=== PATIENT | male | born 1980 ===

== ENCOUNTER 2017-02-12 13:55 | Emergency (ER) | payer MEDICAID ==
[2017-02-12 13:55] VITALS: BMI 24.2
[2017-02-12] MEDS ORDERED: Sodium Chloride 0.9% 1,000 ML IV STA (14:08)
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
[2017-02-12 14:24] VITALS: RESP 18
--- NOTE | 2017-02-12 14:24 | RAD ---
HISTORY: Cough COMPARISON: No prior. FINDINGS: LUNGS: The lungs are well inflated and clear. PLEURA: No significant pleural effusion identified, no pneumothorax apparent. CARDIOVASCULAR: Normal. OSSEOUS STRUCTURES: No significant abnormalities. VISUALIZED UPPER ABDOMEN: Normal. OTHER FINDINGS: None. IMPRESSION: No active pulmonary disease.
[2017-02-12 14:42] LABS: BASO % 0.8 % (0.0-2.0); EOS # 0.1 K/uL (0.0-0.7); EOS % 2.3 % (0.0-4.0); HEMATOCRIT 39.4 % (35.0-51.0); LYMPH # 1.1 K/uL (1.0-4.3); LYMPH % 20.6 % (20.0-40.0); MEAN CELL VOLUME 90.9 fl (80.0-94.0); MEAN CORPUSCULAR HEMOGLOBIN 31.3 pg (27.0-31.0); MEAN CORPUSCULAR HGB CONC 34.4 g/dL (33.0-37.0); MEAN PLATELET VOLUME 10.9 fl (7.2-11.7); MONO % 18.4 % (0.0-10.0); NEUT % 57.9 % (50.0-75.0); NRBC % 0.1 % (0.0-0.0); RED CELL DISTRIBUTION WIDTH 13.2 % (11.5-14.5); WHITE BLOOD COUNT 5.2 K/uL (4.8-10.8)
[2017-02-12 14:51] LABS: ALB/GLOB RATIO 1.4 (1.0-2.1); ALCOHOL SERUM < 10 mg/dl (0-10); ALKALINE PHOSPHATASE 66 U/L (38-126); ALT/SGPT 56 U/L (21-72); AST/SGOT 31 U/L (17-59); BILIRUBIN,TOTAL 0.6 mg/dl (0.2-1.3); BLOOD UREA NITROGEN 15 mg/dl (9-20); CALCIUM 9.1 mg/dL (8.4-10.2); CARBON DIOXIDE 27 mmol/L (22-30); CHLORIDE 106 mmol/L (98-107); GFR AFRICAN-AMERICAN > 60; GLUCOSE,RANDOM 119 mg/dL (75-110); POTASSIUM 3.8 MMOL/L (3.6-5.0); SODIUM 143 mmol/l (132-148)
[2017-02-12 14:57] VITALS: O2SAT 97
--- NOTE | 2017-02-12 15:01 | CT ---
PROCEDURE: CT HEAD WITHOUT CONTRAST. HISTORY: r/o bleed COMPARISON: None available. TECHNIQUE: Axial computed tomography images were obtained through the head/brain without intravenous contrast. Radiation dose: Total exam DLP = 1172.70 mGy-cm. This CT exam was performed using one or more of the following dose reduction techniques: Automated exposure control, adjustment of the mA and/or kV according to patient size, and/or use of iterative reconstruction technique. FINDINGS: HEMORRHAGE: No intracranial hemorrhage. BRAIN: Blount-white matter differentiation is preserved. There is no mass, mass effect or abnormal extra-axial fluid collection. VENTRICLES: The ventricles are normal in size, shape and configuration. CALVARIUM: The skull base and calvarium are normal. PARANASAL SINUSES: Predominantly clear. MASTOID AIR CELLS: Predominantly clear. OTHER FINDINGS: None. IMPRESSION: No acute intracranial abnormality.
--- NOTE | 2017-02-12 15:24 | ED PDOC ---
- Laboratory Results Result Diagrams: 02/12/17 14:38 02/12/17 14:38 - ECG O2 Sat by Pulse Oximetry: 97 (RA) Pulse Ox Interpretation: Normal Medical Decision Making Medical Decision Making: Time: 15:00 --Patient endorsed from Dr. Luna to me. --Pending observation, reevaluation, and disposition. Time: 15:41 --Patient eloped from emergency department. --Attempt to call but unable to reach patient. --Left message to return to the ER. --License information provided was reported to the [facility] [place] medical fitness review unit Scribe Attestation: Documented by Lisa Aldana, acting as a scribe for Zhanna Solares MD. Provider Scribe Attestation: All medical record entries made by the Scribe were at my direction and personally dictated by me. I have reviewed the chart and agree that the record accurately reflects my personal performance of the history, physical exam, medical decision making, and the department course for this patient. I have also personally directed, reviewed, and agree with the discharge instructions and disposition. Disposition - Clinical Impression Clinical Impression: Seizure disorder - POA Present On Arrival: Falls Or Trauma - Disposition Disposition: Eloped Disposition Time: 15:41 Condition: IMPROVED
[2017-02-12 15:58] VITALS: BP 112/72; PULSE 71; TEMP 98.2
--- NOTE | 2017-02-14 11:06 | CARD ---
APPROVED REPORT EKG Measurement Heart [id number] 124P54 [id number] <Conclusion> Normal sinus rhythm Normal ECG
== END 2017-02-12 15:30 | disposition left against medical advice (07) ==
LOC: H.ER 13:55
DX: G40.909 Epilepsy, unspecified, not intractable, without status epilepticus (principal); F41.9 Anxiety disorder, unspecified
CPT/HCPCS: 70450; 71010; 80053; 80320; 82550; 82948; 85025; 93005; 99285; J7040

== ENCOUNTER 2017-02-12 19:51 | Observation (INO) | payer MEDICAID ==
[2017-02-12 19:51] VITALS: BMI 24.2
[2017-02-12 19:55] VITALS: BP 113/65; PULSE 85; RESP 18; TEMP 98.9; O2SAT 97
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
[2017-02-12] MEDS ORDERED: Sodium Chloride 0.9% 1,000 ML IV STA (20:17)
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
[2017-02-12 20:33] LABS: BASO # 0.1 K/uL (0.0-0.2); BASO % 1.1 % (0.0-2.0); EOS # 0.1 K/uL (0.0-0.7); EOS % 1.7 % (0.0-4.0); HEMATOCRIT 37.4 % (35.0-51.0); LYMPH # 1.2 K/uL (1.0-4.3); LYMPH % 18.3 % (20.0-40.0); MEAN CELL VOLUME 90.3 fl (80.0-94.0); MEAN CORPUSCULAR HEMOGLOBIN 30.7 pg (27.0-31.0); MEAN PLATELET VOLUME 10.8 fl (7.2-11.7); MONO # 1.2 K/uL (0.0-0.8); MONO % 18.1 % (0.0-10.0); NEUT % 60.8 % (50.0-75.0); NRBC % 0.1 % (0.0-0.0); WHITE BLOOD COUNT 6.6 K/uL (4.8-10.8)
[2017-02-12 20:33] LABS: VENOUS BLOOD GAS PCO2 47 mmHg (40-60); VENOUS BLOOD PH 7.38 (7.32-7.43)
[2017-02-12 20:42] LABS: ALB/GLOB RATIO 1.4 (1.0-2.1); ALCOHOL SERUM < 10 mg/dl (0-10); ALKALINE PHOSPHATASE 57 U/L (38-126); ALT/SGPT 50 U/L (21-72); AST/SGOT 28 U/L (17-59); BILIRUBIN,TOTAL 0.5 mg/dl (0.2-1.3); BLOOD UREA NITROGEN 18 mg/dl (9-20); CALCIUM 9.1 mg/dL (8.4-10.2); CARBON DIOXIDE 22 mmol/L (22-30); CHLORIDE 107 mmol/L (98-107); GFR AFRICAN-AMERICAN > 60; GLUCOSE,RANDOM 120 mg/dL (75-110); POTASSIUM 3.7 MMOL/L (3.6-5.0); SODIUM 140 mmol/l (132-148); TOTAL PROTEIN 6.4 G/DL (6.3-8.2)
[2017-02-12 22:29] LABS: RBC URINE 11 /hpf (0-3); URINE BILIRUBIN NEGATIVE (NEGATIVE); URINE BLOOD NEGATIVE (NEGATIVE); URINE CALCIUM OXALATE CRYSTALS RARE /hpf (<OCC); URINE COLOR YELLOW (YELLOW); URINE GLUCOSE (UA) NEG (Normal); URINE KETONE NEGATIVE (NEGATIVE); URINE LEUKOCYTE ESTERASE NEG Leu/uL (Negative); URINE PROTEIN NEGATIVE (NEGATIVE); WBC URINE 1 /hpf (0-5)
[2017-02-12] MEDS ORDERED: Dextrose 5%/0.9% NS 1,000 ML IV SCH (22:41)
[2017-02-12] MEDS ORDERED: levETIRAcetam 1,000 MG in Sodium Chloride 0.9% 100 ML IVPB ONE (22:42)
--- NOTE | 2017-02-14 11:04 | CARD ---
APPROVED REPORT EKG Measurement Heart [id number] 140P58 [id number] <Conclusion> Normal sinus rhythm Normal ECG
== END 2017-02-12 23:32 | disposition left against medical advice (07) ==
LOC: H.ER 19:51 → H.ERHOLD 22:39
PROVIDERS: ADMIT Internal Medicine; ATTEND Internal Medicine
DX: G40.909 Epilepsy, unspecified, not intractable, without status epilepticus (principal); J45.909 Unspecified asthma, uncomplicated; I10 Essential (primary) hypertension; F41.9 Anxiety disorder, unspecified
CPT/HCPCS: 80053; 80320; 80324; 80329; 80345; 80346; 80349; 80353; 80358; 80361; 81003; 82550; 82803; 82948; 83992; 85025; 99284; G0378; J7040

== ENCOUNTER 2017-04-11 04:02 | Emergency (ER) | payer MEDICAID ==
[2017-04-11 04:02] VITALS: BMI 24.2
[2017-04-11 04:10] VITALS: BP 135/83; PULSE 70; RESP 18; TEMP 98.3; O2SAT 98
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
== END 2017-04-11 04:55 ==
LOC: H.ER 04:02
DX: Z48.00 Encounter for change or removal of nonsurgical wound dressing (principal)

== ENCOUNTER 2018-02-20 22:10 | Emergency (ER) | payer MEDICAID ==
[2018-02-20 22:10] VITALS: BMI 24.2
[2018-02-20 22:34] VITALS: BP 122/71; PULSE 71; RESP 19; TEMP 98.9; O2SAT 98
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
--- NOTE | 2018-02-21 12:31 | RAD ---
Date of service: 02/20/2018 PROCEDURE: Right small finger radiographs. HISTORY: trauma COMPARISON: None available. TECHNIQUE: AP radiograph of the right hand, as well as spot oblique and lateral images of small finger were obtained. FINDINGS: RIGHT SMALL FINGER: Fifth digit demonstrates oblique nondisplaced fracture of the proximal aspect middle phalanx with intra-articular extension. Fracture deformity of the 4th proximal phalanx appears chronic however lucent line evident; correlate with physical exam in order to assess for point tenderness. JOINTS: No dislocation. SOFT TISSUES: Soft tissue swelling. No evidence of radiopaque foreign body. OTHER FINDINGS: None. IMPRESSION: Fifth digit demonstrates oblique nondisplaced fracture of the proximal aspect middle phalanx with intra-articular extension. Fracture deformity of the 4th proximal phalanx appears chronic however lucent line evident; correlate with physical exam in order to assess for point tenderness. Soft tissue swelling. Study marked for PA review.
== END 2018-02-20 23:40 | disposition home or self-care (01) ==
LOC: H.ER 22:10
DX: S62.646A Nondisplaced fracture of proximal phalanx of right little finger, initial encounter for closed fracture (principal); W22.8XXA Striking against or struck by other objects, initial encounter; Y92.89 Other specified places as the place of occurrence of the external cause

== ENCOUNTER 2018-03-15 12:50 | Emergency (ER) | payer MEDICAID ==
[2018-03-15 12:50] VITALS: BMI 24.2
[2018-03-15 12:55] VITALS: BP 159/79; PULSE 74; RESP 16; TEMP 97.7; O2SAT 97
--- NOTE | 2018-03-15 13:10 | ED PDOC ---
Upper Extremity Pain/Injury Time Seen by Provider: 03/15/18 12:56 Chief Complaint (Nursing): Upper Extremity Problem/Injury Chief Complaint (Provider): Right Elbow Pain History Per: Patient History/Exam Limitations: no limitations Onset/Duration Of Symptoms: Days (x1) Current Symptoms Are (Timing): Still Present Additional Complaint(s): 37 year old male presents to the ED for evaluation of right elbow pain s/p a slip and fall accident yesterday on a wet surface. Patient reports landing on his outstretched right arm behind him and with hyperextension of the elbow. S melody, he notes pain worse with movement to the elbow, but denies any numbness, tingling, or other injury. PMD: mitch Zambrano Past Medical History Reviewed: Historical Data, Nursing Documentation, Vital Signs Vital Signs: Last Vital Signs Temp 97.7 F 03/15/18 12:53 Pulse 74 03/15/18 12:53 Resp 16 03/15/18 12:53 BP 159/79 H 03/15/18 12:53 Pulse Ox 97 03/15/18 12:53 - Medical History PMH: Anxiety, Asthma, Fractures, HTN Denies: Diabetes, Hepatitis, HIV, Chronic Kidney Disease, Seizures, Sexually Transmitted Disease - Surgical History Surgical History: No Surg Hx - Family History Family History: States: Unknown Family Hx - Social History Current smoker - smoking cessation education provided: Yes (heavy) Alcohol: Social Drugs: Denies - Immunization History Hx Tetanus Toxoid Vaccination: No Hx Influenza Vaccination: No Hx Pneumococcal Vaccination: No - Home Medications Home Medications: Ambulatory Orders Medication Instructions Recorded Albuterol HFA [Ventolin HFA 90 1 puff IH .Q4-6H #1 inhaler 05/14/17 mcg/actuation (8 g)] RX: Ibuprofen [Motrin Tab] 600 mg PO Q8 #30 tab 05/14/17 RX: Naproxen [Naprosyn] 500 mg PO BID PRN #10 tab 02/20/18 Acetaminophen with Codeine 1 - 2 tab PO Q6 PRN #12 tablet 03/15/18 [Tylenol with Codeine #3 Tablet] - Allergies Allergies/Adverse Reactions: Allergies Allergy/AdvReac Type Severity Reaction Status Date / Time No Known Allergies Allergy Verified 03/15/18 12:53 Review of Systems ROS Statement: Except As Marked, All Systems Reviewed And Found Negative Musculoskeletal: Positive for: Other (right elbow pain) Neurological: Negative for: Numbness (or tingling) Physical Exam - Reviewed Nursing Documentation Reviewed: Yes Vital Signs Reviewed: Yes - Physical Exam Appears: Positive for: No Acute Distress Head Exam: Positive for: ATRAUMATIC, NORMOCEPHALIC Skin: Positive for: Normal Color. Negative for: Rash Pulses-Radial (L): 2+ Pulses-Radial (R): 2+ Extremity: Positive for: Normal ROM (actively of entire right elbow), Tenderness (minimal to posterior right elbow), Capillary Refill (less than 2 seconds), Swelling (minimal to posterior right elbow), Other (equal pet trainer strength bilaterally; no break in skin integrity). Negative for: Deformity (to right elbow) Neurologic/Psych: Positive for: Alert, Oriented (x3) - ECG O2 Sat by Pulse Oximetry: 97 (RA) Pulse Ox Interpretation: Normal Medical Decision Making Medical Decision Making: Time: 1305 Initial Impression: elbow pain s/p fall Initial Plan: --Right elbow XR --Toradol 15mg IM Of note patient was seen in ED earlier this month, initially diagnosed with a finger injury and no fx. Official XR reports reveal pt did have a fx. Pt was called but he never call the ED back. He states that he never knew and never got the call. Denies any pain to the finger now. 1322 Elbow XR FINDINGS: BONES: Avulsion fracture of the coronoid process. JOINTS: Unremarkable. SOFT TISSUES: Normal. JOINT EFFUSION: Anterior and posterior joint effusion. OTHER FINDINGS: None. IMPRESSION: Avulsion fracture of the coronoid process. [address] Ribeiro, ortho on-call, who recommends a CT of the elbow and splinting with posterior ortho glass splint. Patient is to follow up in his office. 1344 Patient searched on [facility]ware and his last narcotic prescription was in 2016. 1445 Pt refused to wait for Dr. Ribeiro to call back. Advised to only take Tylenol with codeine if Motrin does not relive pain. Informed on the risks of narcotic medications. Told to follow up with Dr. Ribeiro in his office. Scribe Attestation: Documented by Dominique Malloy, acting as a scribe for Thom Jameson PA-C Provider Scribe Attestation: All medical record entries made by the Scribe were at my direction and personally dictated by me. I have reviewed the chart and agree that the record accurately reflects my personal performance of the history, physical exam, medical decision making, and the department course for this patient. I have also personally directed, reviewed, and agree with the discharge instructions and disposition. Procedures - Time-Out Type of Procedure: Splint placement Site of Procedure: R arm Correct Patient: Yes Correct Procedure: Yes Correct Site Marked: Yes X-Ray Marked: Yes - Splinting Location: R elbow Hand-Made Type: orthoglass Splint: posterior elbow Pre-Proc Neuro Vasc Exam: normal Post-Proc Neuro Vasc Exam: normal Disposition - Clinical Impression Clinical Impression: Elbow fracture, right - Patient ED Disposition Is Patient to be Admitted: No - Disposition Referrals: Rio Ribeiro MD [Medical Doctor] - [facility] [Outside] Disposition: Routine/Home Disposition Time: 14:50 Condition: STABLE Additional Instructions: FOLLOW UP WITH DR. RIBEIRO (ORTHOPEDIST) FOR FURTHER EVALUATION WITHOUT FAIL. TELLO PARSONS, thank you for letting us take care of you today. Your provider was Elsa Beach MD and you were treated for FALL;RT ARM PAIN. The emergency medical care you received today was directed at your acute symptoms. If you were prescribed any medication, please fill it and take as directed. It may take several days for your symptoms to resolve. Return to the Emergency Department if your symptoms worsen, do not improve, or if you have any other problems. Please contact your doctor or call one of the physicians/clinics you have been referred to that are listed on the Patient Visit Information form that is included in your discharge packet. Bring any paperwork you were given at discharge with you along with any medications you are taking to your follow up visit. Our treatment cannot replace ongoing medical care by a primary care provider outside of the emergency department. Thank you for allowing the [facility] team to be part of your care today. If you had an X-Ray or CT scan: A Radiologist will review the ED reading if any change in treatment is needed we will contact you. If you had a blood, urine, or wound culture: It will take several days for the results, if any change in treatment is needed we will contact you. If you had an STI test: It will take 48 hours for the results. Please call after 1 week if you have not heard back. Prescriptions: Acetaminophen with Codeine [Tylenol with Codeine #3 Tablet] 1 - 2 tab PO Q6 PRN #12 tablet PRN Reason: Pain Instructions: Elbow Fracture (DC) Forms: [facility] (Sami), [facility] ED School/Work Excuse
--- NOTE | 2018-03-15 13:24 | RAD ---
Date of service: 03/15/2018 PROCEDURE: Radiographs of the right elbow. HISTORY: trauma COMPARISON: No prior. FINDINGS: BONES: Avulsion fracture of the coronoid process. JOINTS: Unremarkable. SOFT TISSUES: Normal. JOINT EFFUSION: Anterior and posterior joint effusion. OTHER FINDINGS: None. IMPRESSION: Avulsion fracture of the coronoid process.
--- NOTE | 2018-03-15 14:37 | CT ---
Date of service: 03/15/2018 PROCEDURE: CT of the right upper extremity without contrast HISTORY: attention RIGHT ELBOW COMPARISON: Right elbow x-ray TECHNIQUE: Contiguous axial images of the right elbow were obtained. Coronal and sagittal reformats were generated. This CT exam was performed using one or more of the following dose reduction techniques: Automated exposure control, adjustment of the mA and/or kV according to patient size, and/or use of iterative reconstruction technique. FINDINGS: BONES: A 4.7 x 1.3 x 5.8 cm avulsed ossific fracture fragment of the ulnar anterior coronoid process is present. No displacement greater than 1 mm in space is suggested. Findings noted on series S 1301, image 61 and series 10, image 149. SOFT TISSUES: Mild amorphous soft tissue swelling JOINT:: No dislocation IMPRESSION: 4.7 x 1.3 x 5.8 cm avulsed ossific fracture fragment of the ulnar anterior coronoid process. No displacement greater than 1 mm. No dislocation.
== END 2018-03-15 15:56 | disposition home or self-care (01) ==
LOC: H.ER 12:50
DX: S52.501A Unspecified fracture of the lower end of right radius, initial encounter for closed fracture (principal); W19.XXXA Unspecified fall, initial encounter; Y92.89 Other specified places as the place of occurrence of the external cause; I10 Essential (primary) hypertension
CPT/HCPCS: 29125; 73080; 73200; 96372; 99284; J1885

== ENCOUNTER 2018-09-19 21:31 | Emergency (ER) | payer MEDICAID ==
[2018-09-19 21:31] VITALS: BMI 24.2
[2018-09-19 21:40] VITALS: BP 147/88; PULSE 82; RESP 18; TEMP 96.8; O2SAT 99
[2018-09-19] MEDS ORDERED: Naproxen 500 MG TAB PO ONE ×2 (22:35→22:38)
--- NOTE | 2018-09-19 22:37 | ED PDOC ---
HPI: General Adult Time Seen by Provider: 09/19/18 22:27 Chief Complaint (Nursing): Medical Clearance Chief Complaint (Provider): clearance for incarceration History Per: Patient Additional Complaint(s): 37 y/o male here in police custody for medical and psychiatric clearance for incarceration. Patient with left lower extremity splint on; states he fractured his ankle on 08/17 and has appointment at podiatry clinic in 3 days for possible surgery. Patient states right now he has his "usual pain", for which he takes Tramadol for. Denies new fall, numbness/weakness left lower extremity. Admits to smoking marijuana today. Patient denies suicidal/homicidal ideations Past Medical History Reviewed: Historical Data, Nursing Documentation, Vital Signs Vital Signs: Last Vital Signs Temp 96.8 F L 09/19/18 21:36 Pulse 82 09/19/18 21:36 Resp 18 09/19/18 21:36 BP 147/88 09/19/18 21:36 Pulse Ox 99 09/19/18 21:36 - Medical History PMH: Anxiety, Asthma, Fractures, HTN Denies: Diabetes, Hepatitis, HIV, Chronic Kidney Disease, Seizures, Sexually Transmitted Disease - Family History Family History: States: Unknown Family Hx - Immunization History Hx Tetanus Toxoid Vaccination: No Hx Influenza Vaccination: No Hx Pneumococcal Vaccination: No - Home Medications Home Medications: Ambulatory Orders Medication Instructions Recorded Acetaminophen with Codeine 1 tab PO Q8H #10 tab 08/17/18 [Tylenol with Codeine No. 3 300 mg-30 mg] traMADol [Ultram] 50 mg PO Q8 #10 tab 08/17/18 - Allergies Allergies/Adverse Reactions: Allergies Allergy/AdvReac Type Severity Reaction Status Date / Time No Known Allergies Allergy Verified 09/19/18 21:36 Review of Systems ROS Statement: Except As Marked, All Systems Reviewed And Found Negative Musculoskeletal: Positive for: Leg Pain Physical Exam - Reviewed Nursing Documentation Reviewed: Yes Vital Signs Reviewed: Yes - Physical Exam Appears: Positive for: Well, Non-toxic, No Acute Distress Head Exam: Positive for: ATRAUMATIC, NORMAL INSPECTION, NORMOCEPHALIC Skin: Positive for: Normal Color Eye Exam: Positive for: Normal appearance ENT: Positive for: Normal ENT Inspection Cardiovascular/Chest: Positive for: Regular Rate, Rhythm Respiratory: Positive for: Normal Breath Sounds Extremity: Positive for: Capillary Refill (<3 sec b/l LE), Other (LLE in splint; digits exposed, FROM. NV intact) Neurological/Psych: Positive for: Awake, Alert, Oriented (x3) - ECG O2 Sat by Pulse Oximetry: 99 - Progress ED Course And Treament: -Naproxen PO -crisis eval Patient evaluated by ash worker and cleared for discharge as per Dr. Reyez Disposition - Clinical Impression Clinical Impression: History of ankle fracture, Adjustment disorder - Patient ED Disposition Is Patient to be Admitted: No Counseled Patient/Family Regarding: Diagnosis, Need For Followup - Disposition Disposition: Discharged/Transfer to Law Enforcement Disposition Time: 22:42 Condition: STABLE Additional Instructions: Patient medically and psychiatrically cleared for incarceration Follow up with Podiatry on 09/22 as scheduled Instructions: Adjustment Disorder, Ankle Fracture
== END 2018-09-19 23:07 | disposition home or self-care (01) ==
LOC: H.ER 21:31
DX: F43.22 Adjustment disorder with anxiety (principal); F12.90 Cannabis use, unspecified, uncomplicated; I10 Essential (primary) hypertension; J45.909 Unspecified asthma, uncomplicated; Z87.81 Personal history of (healed) traumatic fracture

== ENCOUNTER 2018-10-15 19:40 | Emergency (ER) | payer MEDICAID ==
[2018-10-15 19:41] VITALS: BMI 24.2
--- NOTE | 2018-10-15 21:19 | ED PDOC ---
HPI: General Adult Time Seen by Provider: 10/15/18 20:35 Chief Complaint (Nursing): Medical Clearance Chief Complaint (Provider): MEDCIAL AND PSYCH CLEARANCE History Per: Patient History/Exam Limitations: no limitations Onset/Duration Of Symptoms: Hrs Current Symptoms Are (Timing): Still Present Severity: None Additional History Per: Patient Additional Complaint(s): 38 Y/O MALE WITH NO SIGNIFICANT MEDICAL CLEARANCE BROUGHT IN BY LAW ENFORCEMENT FOR MEDICAL AND PSYCHIATRIC CLEARANCE FOR INCARCERATION. PATIENT STATES HE HAS PAIN TO LEFT LOWER ANKLE, PATIENT REPORTS HE FX TO LEFT ANKLE FOR 2 WEEKS NOW AND IS BEING SEEN BY PODIATRY. HE STATES HE NEEDS TO HAVE SX DONE BUT NEEDS MEDICAL CLEARANCE, SINCE HE HAS BEEN IN AND OUT OF SENIOR CARE HE HAS NOT BEEN ABLE TO GET CLEARANCE. PATIENT REQUESTING FOR RECORDS TO BE GIVEN SO HE CAN GET CLEARANCE FROM MEDICAL DOCTOR WHILE IN SENIOR CARE. PATIENT DENIES INCREASE PAIN, SWELLING OR NUMBNESS TO LEFT LOWER EXTREMITY. DENIES ANY PHYSCIAL COMPLAINTS, SI/HI/SUBSTANCE USE. Past Medical History Reviewed: Historical Data, Nursing Documentation, Vital Signs Vital Signs: Last Vital Signs Temp 98.6 F 10/15/18 19:46 Pulse 75 10/15/18 19:46 Resp 16 10/15/18 19:46 BP 137/84 10/15/18 19:46 Pulse Ox 98 10/15/18 19:46 - Medical History PMH: Anxiety, Asthma, Fractures, HTN Denies: Diabetes, Hepatitis, HIV, Chronic Kidney Disease, Seizures, Sexually Transmitted Disease - Surgical History Surgical History: No Surg Hx - Family History Family History: States: Unknown Family Hx - Social History Alcohol: None Drugs: Denies - Immunization History Hx Tetanus Toxoid Vaccination: No Hx Influenza Vaccination: No Hx Pneumococcal Vaccination: No - Home Medications Home Medications: Ambulatory Orders Medication Instructions Recorded Acetaminophen with Codeine 1 tab PO Q8H #10 tab 08/17/18 [Tylenol with Codeine No. 3 300 mg-30 mg] traMADol [Ultram] 50 mg PO Q8 #10 tab 08/17/18 - Allergies Allergies/Adverse Reactions: Allergies Allergy/AdvReac Type Severity Reaction Status Date / Time No Known Allergies Allergy Verified 09/19/18 21:36 Review of Systems ROS Statement: Except As Marked, All Systems Reviewed And Found Negative Musculoskeletal: Positive for: Leg Pain (LEFT LEG LOWER PAIN ) Physical Exam - Reviewed Nursing Documentation Reviewed: Yes Vital Signs Reviewed: Yes - Physical Exam Appears: Positive for: Well, Non-toxic, No Acute Distress Head Exam: Positive for: ATRAUMATIC, NORMAL INSPECTION, NORMOCEPHALIC Skin: Positive for: Normal Color, Warm, DRY Eye Exam: Positive for: EOMI, Normal appearance, PERRL ENT: Positive for: Normal ENT Inspection Neck: Positive for: Normal, Painless ROM Cardiovascular/Chest: Positive for: Regular Rate, Rhythm Respiratory: Positive for: CNT, Normal Breath Sounds Gastrointestinal/Abdominal: Positive for: Normal Exam, Soft Back: Positive for: Normal Inspection Extremity: Positive for: Normal ROM, Capillary Refill (<2 SECS CAP REFILL OF LEFT FOOT PHALANGES. ), Other (LEFT LOWER POSTERIOR SPLINT IN PLACE. PHALANGES ARE WARM TO TOUCH, COLOR WNL, NEG FOR PAIN, MOVEMENT INTACT). Negative for: Calf Tenderness, Deformity Neurological/Psych: Positive for: Awake, Alert, Normal Tone, Oriented - ECG O2 Sat by Pulse Oximetry: 98 Medical Decision Making Medical Decision Makin:45: PATIENT OFFERED MOTRIN FOR PAIN, PATIENT REFUSED. PATIENT MEDICALLY CLEARED PATIENT TO BE CLEARED BY PSYCH TO FOR INCARCERATION. 21:00: PATIENT CLEARED BY PSYCH, DX ADJUSTMENT DISORDER, CLEARED BY DR. BRUNO PER [facility] CHIEF TECHNICAL OFFICER. 21:23: PATIENT REMOVED SPLINT BECAUSE IT WAS "DIRTY" AND HE WANTS IT REPLACED. SKIN IS INTACT, NO REDNESS OR SKIN BREAK DOWN, NO SIGNS OF COMPARTMENT SYNDROME. POSTERIOR SPLINT TO BE REAPPLIED BY DITCHER OPERATOR. 22:00: POSTERIOR SPLINT PLACED BY [facility] TECH, NEURO/VASC INTACT POST SPLINTING. PATIENT CLEARED FOR D/C WITH LAW ENFORCEMENT. Disposition - Clinical Impression Clinical Impression: Adjustment disorder, Ankle fracture - Patient ED Disposition Is Patient to be Admitted: No Counseled Patient/Family Regarding: Diagnosis, Need For Followup - Disposition Referrals: Podiatry Clinic [Outside] Disposition: Discharged/Transfer to Law Enforcement Disposition Time: 21:18 Condition: GOOD Additional Instructions: PATIENT IS MEDICALLY AND PSYCHIATRICALLY CLEARED FOR INCARCERATION. Instructions: Adjustment Disorder, General (DC) Print Language: PORTUGUESE - POA Present On Arrival: None
[2018-10-15 21:51] VITALS: BP 126/81; PULSE 66; RESP 19; TEMP 98.2
[2018-10-15 22:02] VITALS: O2SAT 98
== END 2018-10-15 22:15 ==
LOC: H.ER 19:40
DX: F43.22 Adjustment disorder with anxiety; I10 Essential (primary) hypertension; J45.909 Unspecified asthma, uncomplicated; Z87.311 Personal history of (healed) other pathological fracture

== ENCOUNTER 2018-11-12 14:18 | Emergency (ER) | payer MEDICAID ==
[2018-11-12 14:19] VITALS: BMI 24.2
[2018-11-12 14:51] VITALS: BP 110/61; PULSE 88; RESP 20; TEMP 98.3; O2SAT 97
--- NOTE | 2018-11-12 16:04 | RAD ---
Date of service: 11/12/2018 PROCEDURE: Right ring finger radiographs. HISTORY: pain and dec ROM at R 4th MCP COMPARISON: Right hand radiographs 02/20/2018. TECHNIQUE: AP radiograph of the right hand, as well as spot oblique and lateral images of ring finger were obtained. 3 views obtained. FINDINGS: RIGHT RING FINGER: Normal proximal and distal phalanges of right ring finger, without fracture or focal lesion. Remainder of the right hand (as seen on the AP view) is remarkable for an old healed fracture proximal phalanx right ring finger with chronic deformity. No additional interval findings compared to 02/20/2018 radiographs. JOINTS: Normal. SOFT TISSUES: Normal. OTHER FINDINGS: None. IMPRESSION: Normal right ring finger radiographs. Incidental note is made of an interval, chronic healed fracture at the proximal phalanx right ring finger.
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
== END 2018-11-12 17:00 | disposition home or self-care (01) ==
LOC: H.ER 14:18
DX: S60.041A Contusion of right ring finger without damage to nail, initial encounter (principal); Y04.0XXA Assault by unarmed brawl or fight, initial encounter; Y92.89 Other specified places as the place of occurrence of the external cause